=== PATIENT | male | born 1970 | race Caucasian/White ===

== ENCOUNTER 2019-06-18 05:24 | Emergency (ER) | payer OTHER, SELFPAY ==
[2019-06-18 05:25] VITALS: BP 125/74; PULSE 78; RESP 12; TEMP 36.5; O2SAT 95; BMI 27.6
--- NOTE | 2019-06-18 05:39 | RAD_ITS ---
STUDY: X-RAY CHEST REASON FOR EXAM: Male, 49 years old. Chest pain TECHNIQUE: 1 view COMPARISON: None. FINDINGS: The lungs are clear and expanded. There is no demonstrated pleural abnormality. Normal size heart. Normal mediastinum and mattie. Normal visualized pulmonary arteries. Normal visualized aortic arch and descending thoracic aorta. Normal visualized thoracic spine. Normal visualized ribs, clavicles, and shoulders. There is no demonstrated abnormality of the visualized soft tissue structures of the upper abdomen. RAD/Chest 1 View (Portable) IMPRESSION: Normal x-ray examination of the chest. No acute findings in the lungs Electronically Signed: Bogdan Taylor MD at 6:24 EST Tel , Service support ,
--- NOTE | 2019-06-18 05:39 | EKG12_ITS ---
Test Reason : Blood Pressure : / mmHG Vent. Rate : 064 BPM Atrial Rate : 064 BPM P-R Int : 150 ms QRS Dur : 076 ms QT Int : 412 ms P-R-T Axes : 026 050 024 degrees QTc Int : 425 ms Normal sinus rhythm Normal ECG Confirmed by ABIGAIL FAUST MD ([id number]), non linear editor NOHEMY SALINAS ([id number]) on 06/21/2019 1:34:21 PM Referred By: JELANI Confirmed By:ABIGAIL FAUST MD
[2019-06-18 05:48] VITALS: O2SAT 97
[2019-06-18 05:49] LABS: Absolute Lymphocyte Count 1.91 X10^3/uL (0.83-4.51); Absolute Neutrophil Count 3.5 X10^3/uL (2.0-7.7); Basophil# 0.07 X10^3/uL; Basophil% 1.1 % (0-1); Eosinophil# 0.28 X10^3/uL; Eosinophils% 4.5 % (0-5); Hematocrit 39.7 % (40-54); Hemoglobin 13.1 g/dL (13.0-16.5); Lymphocyte # 1.91 X10^3/ul (4.0); Lymphocyte % 30.6 % (19-41); Mean Corpuscular Hgb 28.6 pg (27.0-32.0); Mean Corpuscular Volume 86.7 fL (80-94); Mean Platelet Vol. 9.2 fl (6.2-12.0); Monocyte# 0.49 X10^3/uL; Monocyte% 7.8 % (0-10); NRBC Flagged by Analyzer 0 % (0-5); Neutrophil # 3.49 X10^3/uL (2.7-7.7); Neutrophil % 55.8 % (47-70); Platelet Count 338 K/mm3 (150-450); RBC Distribution Width CV 13.5 % (11.6-14.6); Red Blood Count 4.58 M/mm3 (4.6-6.2); White Blood Count 6.3 K/mm3 (4.4-11.0)
[2019-06-18] MEDS: 0.9% Normal Saline 1,000 ML 150 ML IV (06:05)
[2019-06-18 06:08] LABS: Anion Gap 4 (5-15); BUN 13 mg/dL (7-18); BUN/Creat Ratio 13.6 RATIO (10-20); Calcium,Total 8.7 mg/dL (8.5-10.1); Chloride 111 mmol/L (98-107); Creatinine, Serum 0.95 mg/dL (0.70-1.30); EST Glomerular Filtration Rate 89 mL/min (>60); Est Glom Filt Rate - Afr Amer 108 mL/min (>60); Estimated Creatinine Clearance 112.42 ml/min; Glucose 90 mg/dL (74-106); Potassium 3.8 mmol/L (3.5-5.1); Sodium Level 141 mmol/L (136-145)
--- NOTE | 2019-06-18 06:20 | ED.VIS.GEN ---
History of Present Illness Chief Complaint: Chest Pain Informant: Patient Onset: Today Current Severity: Mild Maximum Severity: Moderate Narrative: Patient states he was driving to work this morning when he got a nauseated feeling in his stomach. He states his arms then felt very heavy and tingly and he got central chest pain. He pulled over to the side of the road and called 911. Patient was given aspirin and 1 nitro with EMS. Pain is significantly improved at this time. Patient does have a history of atrial fibrillation and underwent cardiac ablation approximately 5 years ago. Patient states he has had some recent palpitations. When he had chest pain this morning he felt like he was having palpitations. - Past Medical History (1) Atrial fibrillation Status: Resolved (2) H/O cardiac radiofrequency ablation Status: Chronic Past Medical History - Allergies and Home Meds Allergies/Adverse Reactions: Allergies No Known Allergies Allergy (Verified 06/18/19 05:25) Primary Care Physician: Care Physician,No Primary [Primary Care Provider] - Doctors: [facility], Dr. Tyler Silverio at [place] Prior records reviewed: Yes Surgical History: - - Cardiac ablation Smoking Status: Former smoker Review of Systems General: Denies: Chills, Fever Eyes: Denies: Visual changes - bilaterally ENT: Denies: Bilateral ear pain Cardiovascular: Reports: Chest pain, Palpitations Respiratory: Reports: Dyspnea. Denies: Cough Gastrointestinal: Reports: Nausea. Denies: Abdominal pain, Vomiting, Diarrhea Genitourinary: Denies: Dysuria Skin: Denies: Rash Neurological: Denies: Headache Allergy: Denies: Uticaria Physical Exam Vital Signs/Narrative: Vital Signs Temp Pulse Resp BP Pulse Ox 06/18/19 05:48 97 06/18/19 05:25 97.7 F L 78 12 125/74 H 95 Inital Vital Signs reviewed: Yes General: Well nourished, Well developed Head: Normocephalic ENT: Moist mucous membranes Neck: Supple Cardiovascular: Regular rate, Regular rhythm Respiratory: No distress, CTA bilaterally, Chest tenderness Abdomen: Soft, Nontender, Nondistended Extremities: Nontender Skin: Normal color, No rash Neurological: Alert, Oriented x3 Psychological: Normal affect Diagnostic/Tx/Re-eval Impressions Chest X-Ray 06/18/19 05:39 IMPRESSION: Normal x-ray examination of the chest. No acute findings in the lungs Electronically Signed: Bogdan Taylor MD at 6:24 EST Tel , Service support , 06/18/19 05:39 Chest 1 View (Portable) [RAD] Stat Laboratory Results 06/18/19 06/18/19 06/18/19 05:36 05:36 05:36 WBC 6.3 RBC 4.58 L Hgb 13.1 Hct 39.7 L MCV 86.7 MCH 28.6 MCHC 33.0 RDW Std Deviation 43.0 RDW Coeff of Minh 13.5 Plt Count 338 MPV 9.2 Immature Gran % (Auto) 0.200 Neut % (Auto) 55.8 Lymph % (Auto) 30.6 Traverse % (Auto) 7.8 Eos % (Auto) 4.5 Baso % (Auto) 1.1 H Absolute Neuts (auto) 3.5 Absolute Lymphs (auto) 1.91 Nucleated RBC % 0 D-Dimer Quant (PE/DVT) 0.34 Sodium 141 Potassium 3.8 Chloride 111 H Carbon Dioxide 26.0 Anion Gap 4 L BUN 13 Creatinine 0.95 Estim Creat Clear Calc 112.42 Est GFR (MDRD) Af Amer 108 Est GFR (MDRD) Non-Af 89 BUN/Creatinine Ratio 13.6 Glucose 90 Calcium 8.7 Troponin I < 0.015 - EKG Initial EKG Interpretation: Sinus Rhythm - Sinus at 74 with no acute ischemia. - Medical Decision Making Patient received aspirin and 1 nitro with EMS. On repeat evaluation he is resting comfortably. Test results are reviewed. Patient will have a repeat EKG and troponin drawn at 3 hours. If this is negative he will be discharged to home. 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 ED Disposition - Plan for ED Patient: Disposition: Home or Assisted Living Diagnosis: Chest pain Instructions: CHEST PAIN, Uncertain Cause Additional Instructions: Follow-up with Dr Silverio at [place].
[2019-06-18 06:31] VITALS: BP 114/82; PULSE 63; RESP 16; O2SAT 97
[2019-06-18 06:43] LABS: D-Dimer Quantitative (DVT/PE) 0.34 FEU/ug/m (0.27-0.49)
[2019-06-18 07:25] VITALS: BP 116/76; PULSE 63; RESP 16; O2SAT 99
--- NOTE | 2019-06-18 08:25 | EKG12_ITS ---
Test Reason : CP Blood Pressure : / mmHG Vent. Rate : 074 BPM Atrial Rate : 074 BPM P-R Int : 140 ms QRS Dur : 078 ms QT Int : 382 ms P-R-T Axes : 021 052 028 degrees QTc Int : 424 ms Normal sinus rhythm Normal ECG Confirmed by ABIGAIL FAUST MD ([id number]), editor producer NOHEMY SALINAS ([id number]) on 06/21/2019 1:34:37 PM Referred By: JELANI Confirmed By:ABIGAIL FAUST MD
[2019-06-18 09:03] VITALS: BP 105/70; PULSE 64; RESP 17; O2SAT 98
[2019-06-18] MEDS: Acetaminophen 500 MG Tablet 1000 MG PO (09:37)
[2019-06-18 09:38] VITALS: BP 108/76; PULSE 72; RESP 16; O2SAT 96
== END 2019-06-18 09:51 | disposition home or self-care (01) ==
PROVIDERS: Emergency Provider Emergency Medicine
DX: R07.9 Chest pain, unspecified (principal); R51 Headache; Z87.891 Personal history of nicotine dependence
CPT/HCPCS: 36415; 71045; 80048; 84484; 85025; 85379; 93005; 96360; 96361; 99285; J7030; A4216